=== PATIENT | male | born 2000 | race Caucasian/White ===

== ENCOUNTER 2022-05-03 03:19 | Emergency (ER) | payer BC, SELFPAY ==
--- NOTE | 2022-05-03 03:22 | CTR_ITS ---
PROCEDURE INFORMATION: Exam: CT Abdomen And Pelvis Without Contrast Exam date and time: 05/03/2022 3:54 AM Age: 22 years old Clinical indication: Abdominal pain; Flank; Right; Additional info: Flank pain TECHNIQUE: Imaging protocol: Computed tomography of the abdomen and pelvis without contrast. Radiation optimization: All CT scans at this facility use at least one of these dose optimization techniques: automated exposure control; mA and/or kV adjustment per patient size (includes targeted exams where dose is matched to clinical indication); or iterative reconstruction. COMPARISON: [facility] Extremity/Soft Tissue 02/23/2019 3:41 PM RADIATION DOSE METRICS: Total DLP (mGy-cm): 486.93 FINDINGS: Liver: Normal. No mass. Gallbladder and bile ducts: Normal. No calcified stones. No ductal dilation. Pancreas: Normal. No ductal dilation. Spleen: One or more accessory splenules. Adrenal glands: Normal. No mass. Kidneys and ureters: 3 mm right UVJ stone with moderate right hydronephrosis. Stomach and bowel: Unremarkable. No obstruction. No mucosal thickening. Appendix: Normal appendix. Intraperitoneal space: Unremarkable. No free air. No significant fluid collection. Vasculature: Unremarkable. No abdominal aortic aneurysm. Lymph nodes: Unremarkable. No enlarged lymph nodes. Urinary bladder: Unremarkable as visualized. Reproductive: Unremarkable as visualized. Bones/joints: Unremarkable. No acute fracture. Soft tissues: Unremarkable. CT/CT kidney stone [id number] IMPRESSION: 3 mm right UVJ stone with moderate right hydronephrosis.
[2022-05-03 03:28] VITALS: BP 133/80; PULSE 67; RESP 18; TEMP 36.5; O2SAT 100; BMI 24.3
[2022-05-03 03:47] LABS: Basophils # 0.1 10^3/uL (0.0-0.1); Basophils % 0.4 %; Eosinophils % 0.2 %; Hematocrit 45.5 % (42.0-52.0); Hemoglobin 15.9 g/dL (11.7-16.6); Lymphocytes # 1.6 10^3/uL (1.5-6.5); Lymphocytes % 11.7 %; Mean Corpuscular HGB Conc 34.9 g/dL (30.0-36.0); Mean Corpuscular Hemoglobin 30.1 pg (28.0-34.0); Mean Corpuscular Volume 86.2 fl (80-94); Mean Platelet Volume 9.5 fL (7.4-10.4); Monocytes # 1.1 10^3/uL (0.2-0.9); Monocytes % 7.8 %; Neutrophils # 11.18 10^3/uL (1.8-8.0); Neutrophils % 79.6 %; Nucleated Red Blood Cells % 0 %; Platelet Count 311 10^3/cmm (130-400); Red Blood Count 5.28 10^6/uL (4.1-5.3); Red Cell Distribution Width 11.8 % (12.1-15.1)
[2022-05-03 03:49] VITALS: RESP 16; O2SAT 98
[2022-05-03] MEDS: HYDROmorphone 1 mg/mL INJ 1 mL IVP (03:49)
[2022-05-03] MEDS: ondansetron 2 mg/ML SDV 2 mL 4 MG IVP (03:50)
[2022-05-03 04:03] LABS: Alanine Aminotransferase 18 U/L (0-41); Albumin Level 5.1 g/dL (3.5-5.2); Alkaline Phosphatase 67 U/L (40-130); Anion Gap 20.1 (5-19); Aspartate Amino Transferase 18 U/L (0-40); Blood Urea Nitrogen 19 mg/dL (6-20); Calcium 9.9 mg/dL (8.5-10.5); Carbon Dioxide 22 mmol/L (22-29); Chloride 100 mmol/L (98-107); Globulin 1.9 g/dL (1.3-4.6); Glomerular Filtration Rate 85.3 mL/min (90-130); Glucose 123 mg/dL (65-115); Osmolality Calculated 290 mOsm/kg (285-295); Potassium 4.1 mmol/L (3.5-5.1); Sodium 138 mmol/L (136-145); Total Bilirubin 0.6 mg/dL (0.15-1.2)
--- NOTE | 2022-05-03 04:38 | W.ED.MALEGU ---
HPI - Male Genitourinary General: Chief complaint: Urogenital-Male Stated complaint: ABD Pain Time Seen by Provider: 05/03/22 04:21 Source: patient and family History of Present Illness: 22-year-old healthy male complains of right-sided flank and belly pain for the last week on and off. It became worse last night, with episodes of vomiting. No fever, although he notes chills. No history of belly surgery. MD Complaint: other Onset (ago): day(s) Duration: constant and progressively worsening Location: right flank and abdomen Radiation: right testicle Quality: aching, sharp and stabbing Relieving factors: none Associated symptoms: Reports nausea and vomiting Review of Systems Const: Reports: chills; Denies: fever(s) or body aches Eyes: Denies: change in vision Card: Denies: chest pain or palpitations Resp: Denies: dyspnea, productive cough, non-productive cough or wheezing GI: Reports: abdominal pain, nausea and vomiting; Denies: diarrhea or hematochezia : Reports: flank pain and urinary frequency Skin/Breast: Denies: rash Neuro: Denies: headache(s), weakness in extremities, dizziness or confusion Physical Exam Const: COMMON NORMALS: no acute distress GENERAL APPEARANCE: cooperative; not ill appearing and not frail appearing HENMT: COMMON NORMALS: normocephalic, atraumatic and Normal external nose present HEAD & SCALP: normocephalic and atraumatic FACE & SINUS: normal facial exam and face symmetric NOSE: Normal external nose present Eye: COMMON NORMALS: Equal, round and reactive pupils present and EOMs intact bilaterally PUPIL: Yes Equal, round and reactive pupils present Neck/C-Spine: GENERAL: Yes trachea midline Chest: CHEST: Yes Symmetrical chest wall rise Resp: COMMON NORMALS: normal respiratory effort, No retractions, No use of accessory muscles and clear to auscultation bilaterally AUSCULTATION: clear to auscultation bilaterally Cardio: COMMON NORMALS: regular rate and regular rhythm RATE: regular rate RHYTHM: regular rhythm GI: COMMON NORMALS: Normal to inspection, nondistended, normoactive bowel sounds present PALPATION: Yes Tenderness to palpation present (GI) Details: RLQ : BLADDER/KIDNEY EXAM: Yes CVA tenderness on the right Back/Pelvis: GENERAL BACK: Yes CVA tenderness Extremity: COMMON NORMALS: no pedal edema Neuro: TIM COMA SCALE: document GCS findings [place] coma scale eye opening: Spontaneous Tim coma scale verbal response: Orientated [place] coma scale motor response: Obey commands Tim coma scale total score: 15 SENSORY EXAM: Yes extremities (intact) Psych: COMMON NORMALS: speech normal SPEECH: Yes normal speech Skin: COMMON NORMALS: no rashes or lesions noted GENERAL SKIN EXAM: no rashes or lesions noted Course Vital Signs: Vital signs: Vital Signs Temperature 97.7 F 05/03/22 03:28 Pulse Rate 73 05/03/22 05:47 Respiratory Rate 14 05/03/22 05:47 Blood Pressure 126/61 05/03/22 05:47 Pulse Oximetry 98 05/03/22 03:49 Oxygen Delivery Me thod 05/03/22 03:28 MDM - Male Medical Decision Making 22-year-old male with a 3 mm right UVJ stone. Currently his pain is controlled. He has some moderate hydronephrosis by CT scan. White blood cell count is 14. No evidence of urinary tract infection by urinalysis. He has received some IV fluid. Given his clinical improvement, I am suspecting the stone has passed into the bladder. He will be allowed home with pain medication, antiemetic, and Flomax. He will follow-up with urology if needed. Lab Data : 05/03/22 03:38 05/03/22 03:38 Radiology Impressions Abdomen/Pelvis CT 05/03/22 03:22 IMPRESSION: 3 mm right UVJ stone with moderate right hydronephrosis. Laboratory Results WBC 14.0 10^3/uL (4.5-13.0) H 05/03/22 03:38 RBC 5.28 10^6/uL (4.1-5.3) 05/03/22 03:38 Hgb 15.9 g/dL (11.7-16.6) 05/03/22 03:38 Hct 45.5 % (42.0-52.0) 05/03/22 03:38 MCV 86.2 fl (80-94) 05/03/22 03:38 MCH 30.1 pg (28.0-34.0) 05/03/22 03:38 MCHC 34.9 g/dL (30.0-36.0) 05/03/22 03:38 RDW 11.8 % (12.1-15.1) L 05/03/22 03:38 Plt Count 311 10^3/cmm (130-400) 05/03/22 03:38 MPV 9.5 fL (7.4-10.4) 05/03/22 03:38 Neut % (Auto) 79.6 % 05/03/22 03:38 Lymph % (Auto) 11.7 % 05/03/22 03:38 Park % (Auto) 7.8 % 05/03/22 03:38 Eos % (Auto) 0.2 % 05/03/22 03:38 Baso % (Auto) 0.4 % 05/03/22 03:38 Neut # (Auto) 11.18 10^3/uL (1.8-8.0) H 05/03/22 03:38 Lymph # (Auto) 1.6 10^3/uL (1.5-6.5) 05/03/22 03:38 Park # (Auto) 1.1 10^3/uL (0.2-0.9) H 05/03/22 03:38 Eos # (Auto) 0.0 10^3/uL (0.0-0.8) 05/03/22 03:38 Baso # (Auto) 0.1 10^3/uL (0.0-0.1) 05/03/22 03:38 Nucleated RBC % (auto) 0 % 05/03/22 03:38 Nucleated RBCs # 0.0 /100WBC 05/03/22 03:38 Sodium 138 mmol/L (136-145) 05/03/22 03:38 Potassium 4.1 mmol/L (3.5-5.1) 05/03/22 03:38 Chloride 100 mmol/L (98-107) 05/03/22 03:38 Carbon Dioxide 22 mmol/L (22-29) 05/03/22 03:38 Anion Gap 20.1 (5-19) H 05/03/22 03:38 BUN 19 mg/dL (6-20) 05/03/22 03:38 Creatinine 1.1 mg/dL (0.7-1.2) 05/03/22 03:38 GFR Calculation 85.3 mL/min (90-130) L 05/03/22 03:38 Glucose 123 mg/dL (65-115) H 05/03/22 03:38 Calculated Osmolality 290 mOsm/kg (285-295) 05/03/22 03:38 Calcium 9.9 mg/dL (8.5-10.5) 05/03/22 03:38 Total Bilirubin 0.6 mg/dL (0.15-1.2) 05/03/22 03:38 AST 18 U/L (0-40) 05/03/22 03:38 ALT 18 U/L (0-41) 05/03/22 03:38 Alkaline Phosphatase 67 U/L (40-130) 05/03/22 03:38 C-Reactive Protein 3.0 mg/L (0.0-4.9) 05/03/22 03:38 Total Protein 7.0 g/dL (6.6-8.7) 05/03/22 03:38 Albumin 5.1 g/dL (3.5-5.2) 05/03/22 03:38 Globulin 1.9 g/dL (1.3-4.6) 05/03/22 03:38 Urine Color Yellow (Yellow) 05/03/22 05:05 Urine Appearance Sl hazy (CLEAR) 05/03/22 05:05 Urine pH 6 (5-7) 05/03/22 05:05 Ur Specific [place] 1.015 (1.005-1.030) 05/03/22 05:05 Urine Protein Trace (Negative) 05/03/22 05:05 Urine Glucose (UA) Norm (Normal) 05/03/22 05:05 Urine Ketones 2+ (Negative) H 05/03/22 05:05 Urine Blood 3+ (Negative) H 05/03/22 05:05 Urine Nitrate Negative (Negative) 05/03/22 05:05 Urine Bilirubin Neg (Negative) 05/03/22 05:05 Urine Urobilinogen Norm mg/dL (Negative) 05/03/22 05:05 Ur Leukocyte Esterase Negative (Negative) 05/03/22 05:05 Urine RBC 5-10 /hpf (0-2) H 05/03/22 05:05 Urine WBC 0-4 /hpf (0-5) H 05/03/22 05:05 Ur Squamous Epith Cells 0-4 /hpf (0-5) H 05/03/22 05:05 Amorphous Sediment Not Reportable 05/03/22 05:05 Urine Bacteria Trace /hpf (NONE) 05/03/22 05:05 Hyaline Casts 0-4 /lpf H 05/03/22 05:05 Urine Mucus Trace /hpf 05/03/22 05:05 Discharge Plan Discharge Patient Disposition: Home Clinical Impression: Ureterolithiasis Condition: Stable Prescriptions: New Percocet 7.5-325 mg tablet 1 tab PO Q6H PRN (Reason: pain) Qty: 10 0RF ondansetron 4 mg film 4 mg PO DAILY PRN (Reason: nausea and vomiting) Qty: 10 0RF Flomax 0.4 mg capsule 0.4 mg PO DAILY Qty: 10 0RF Discharge Orders: Discharge ED (Routine); Ordered 05/03/22 Ordered By: Gabe Boyle Referrals: Pipo Bowman MD [Physician] - 4-7 days Jose Daniel Jenkins DO [Primary Care Provider] - 1-3 days Patient Instructions: Kidney Stones (ED), Opioid Safety Activity Restrictions/Additional Instructions: Return for fever greater than 100, vomiting liquids or medications, worsening pain despite treatment, inability to urinate, any other concerning symptoms. If significant pain is still present in 48 hours, call urology for follow-up. Coding Level of Care Code ED Hospitality Intern for Sole Lopez
[2022-05-03] MEDS: sodium chloride 0.9% 1,000 ML 999 ML IV (04:46)
[2022-05-03 05:31] LABS: Specific Gravity, Urine 1.015 (1.005-1.030); Urine Appearance SL Hazy (CLEAR); Urine Color Yellow (Yellow); pH Urine 6 (5-7)
[2022-05-03 05:32] LABS: Add Urine Microscopic? YES; Bilirubin Urine Neg (Negative); Blood Urine 3+ (Negative); Glucose Urine UA Norm (Normal); Ketones Urine 2+ (Negative); Leukocyte Esterase Urine Negative (Negative); Nitrate Urine Negative (Negative); Protein Urine Trace (Negative); Urobilinogen Urine Norm (Negative)
[2022-05-03 05:33] LABS: Squamous Epithelial Cell Urine 0-4 /hpf (0-5); WBC Urine 0-4 /hpf (0-5)
[2022-05-03 05:34] LABS: Add Urine Culture? No; Bacteria Urine TRACE /hpf; Hyaline Casts Urine 0-4 /lpf; Mucus Urine TRACE /hpf
[2022-05-03] MEDS: ketorolac 30 mg/mL INJ IVP (05:46)
[2022-05-03 05:47] VITALS: BP 126/61; PULSE 73; RESP 14
== END 2022-05-03 05:48 | disposition home or self-care (01) ==
PROVIDERS: Emergency Provider Emergency Medicine; PCP Family Medicine
DX: N20.1 Calculus of ureter (principal)
CPT/HCPCS: 74176; 80053; 81001; 85025; 86140; 96374; 96375; 99285; J1170; J1885; J2405; J7030

== ENCOUNTER → 2024-12-08 09:22 | Outpatient (BNVA) | payer OTHER, SELFPAY | PROVIDERS: PCP Family Medicine; Visit Provider Family Medicine | DX: E03.9 Hypothyroidism, unspecified (principal) | CPT/HCPCS: 80053; 80061; 82306; 82607; 84439; 84443; 84481; 84482; 86376 ==

== ENCOUNTER → 2025-01-26 09:16 | Outpatient (BNVA) | payer OTHER, SELFPAY | PROVIDERS: PCP Family Medicine; Visit Provider Family Medicine | DX: E03.9 Hypothyroidism, unspecified (principal) | CPT/HCPCS: 84443 ==